=== PATIENT | female | born 1965 | race Caucasian/White ===

== ENCOUNTER → 2017-05-13 | Outpatient (CLI) | payer BC ==
--- NOTE | 2017-05-14 14:48 | MG ---
HISTORY: SCREENING Comparison: Multiple priors dating back to 2007 FINDINGS: Bilateral CC and MLO projections of the right and left breast were obtained. Heterogeneously dense fibroglandular tissue is seen to be present. The right breast is mammographically stable. On the le ft, there is a developing partially obscured and partially circumscribed isodense nodule at 9 o'cloc k centrally at mid depth in the periareolar breast most likely reflecting a benign cyst with multipl e additional bilateral similar appearing smaller nodules which are stable Ed again favored to repres ent benign cysts but for which further evaluation with follow up spot magnification and ultrasound a re recommended to confirm benign features given the interval change on the left. No skin thickening or nipple retraction is appreciated. No pathological lymphadenopathy can be identified. Benign-ap pearing calcifications are noted within the right and left breast. IMPRESSION: Developing 9 o'clock central left breast nodule for which spot magnification and target ed sonography are recommended. ACR CATEGORY 0 - assessment incomplete; additional imaging recommended. Diagnostic CAD was utilized and reviewed. * 0 (ZERO) - ASSESSMENT INCOMPLETE; ADDITIONAL IMAGING IS NEEDED. * 1/ (ONE) - NEGATIVE. * 2/II (TWO) - BENIGN FINDINGS. * 3/III (THREE) - PROBABLY BENIGN FINDING; SHORT INTERVAL FOLLOW-UP SUGGESTED. * 4/IV (FOUR) - SUSPICIOUS ABNORMALITY; BIOPSY SHOULD BE CONSIDERED. * 5/V (FIVE) - HIGHLY SUSPICIOUS OF MALIGNANCY; BIOPSY SHOULD BE PERFORMED. A NEGATIVE X-RAY REPORT SHOULD NOT DELAY BIOPSY IF A DOMINANT OR CLINICALLY SUSPICIOUS MASS IS PRESENT; 4 TO 8 PERCENT OF CANCERS ARE NOT IDENTIFIED BY X-RAY. A NEG ATIVE REPORT MAY REINFORCE THE CLINICAL IMPRESSION. ADENOSIS AND DENSE BREASTS MAY OBSCURE AN UNDER LYING NEOPLASM. Reported By:
== END ==
LOC: RAD 14:13
PROVIDERS: ATTEND Obstetrics & Gynecology
DX: Z12.31 Encounter for screening mammogram for malignant neoplasm of breast (principal)
CPT/HCPCS: 77067

== ENCOUNTER → 2017-06-13 | Outpatient (CLI) | payer BC ==
--- NOTE | 2017-06-13 16:09 | US ---
HISTORY: Abnormal screening mammography with new left breast nodule Left breast digital diagnostic mammography with CAD and left breast ultrasound. Comparison: April 18, 2016 and May 13, 2017 FINDINGS: Mammogram: Spot-compression and mL views of the left breast were obtained. Heterogeneously dense fib roglandular tissue is seen to be present without significant interval change. There is a persistent 1.4 cm partially obscured and partially circumscribed isodense nodule at 11-12 o'clock in the central anterior breast which we correlated with ultrasound. No skin thickening or nipple retraction is hector reciated. No pathological lymphadenopathy can be identified. Benign-appearing calcifications are no amanda. Ultrasound: Multiple grayscale and color Doppler images of the upper medial subareolar left breast we re obtained. At 10 o'clock, there is a horizontally oriented macro lobulated but smoothly marginated and well circumscribed 1.4 cm anechoic cyst with posterior acoustical enhancement and no internal Dop pler flow most compatible with a benign simple parenchymal cyst and felt to correspond to the mammogr aphic findings. Additional adjacent simple microcysts are noted as well with a background of fibrocys tic breast parenchyma. No peripheral nodular components are seen. There is no suspicious solid nodule . IMPRESSION: NO RADIOGRAPHIC EVIDENCE OF MALIGNANCY. ACR CATEGORY 2 - benign findings. FOLLOW-UP EXAM 1 YEAR. Diagnostic CAD was utilized and reviewed. * 0 (ZERO) - ASSESSMENT INCOMPLETE; ADDITIONAL IMAGING IS NEEDED. * 1/1 (ONE) - NEGATIVE. * 2/II (TWO) - BENIGN FINDINGS. * 3/III (THREE) - PROBABLY BENIGN FINDING; SHORT INTERVAL FOLLOW-UP SUGGESTED. * 4/IV (FOUR) - SUSPICIOUS ABNORMALITY; BIOPSY SHOULD BE CONSIDERED. * 5/V (FIVE) - HIGHLY SUSPICIOUS OF MALIGNANCY; BIOPSY SHOULD BE PERFORMED. A NEGATIVE X-RAY REPORT SHOULD NOT DELAY BIOPSY IF A DOMINANT OR CLINICALLY SUSPICIOUS MASS IS PRESENT; 4 TO 8 PERCENT OF CANCERS ARE NOT IDENTIFIED BY X-RAY. A NEGA TIVE REPORT MAY REINFORCE THE CLINICAL IMPRESSION. ADENOSIS AND DENSE BREASTS MAY OBSCURE AN UNDERLY ING NEOPLASM. Reported By:
== END ==
LOC: RAD 14:04
PROVIDERS: ATTEND Obstetrics & Gynecology
DX: R92.2 Inconclusive mammogram (principal)
CPT/HCPCS: 76642; 77065